=== PATIENT | male | born 1990 | race African-American/Black ===

== ENCOUNTER 2019-12-18 11:20 | Inpatient (IN) | payer OTHER ==
[2019-12-18] VITALS (16 sets, daily range): BP systolic 115–171; BP diastolic 49–100
[~2019-12-18] VITALS: Ht 182.9 cm; Wt 93.0 kg
[~2019-12-18 11:20] MED LIST: NOHOMEMEDICATIONS
[2019-12-18 12:00] LABS: BASOPHILS 0.5 % (0.0-2.0); EOSINOPHILS 0.1 % (0.0-3.0); HEMATOCRIT 51.6 % (42.0-52.0); HEMOGLOBIN 17.9 gm/dL (14.0-18.0); LYMPHOCYTES 10.1 % (24.0-44.0); MCH 30.5 pg (26.0-34.0); MCHC 34.6 g/dL (28.0-37.0); MCV 88.2 fL (80.0-100.0); MONOCYTES 8.1 % (1.0-8.0); PLATELET COUNT 362 thou/uL (150-400); POLYS 81.2 % (36.0-66.0); RBC 5.86 mil/uL (4.50-6.00); RDW 12.6 % (10.5-14.5); WBC 12.3 thou/uL (4.0-11.0)
[2019-12-18 12:09] LABS: CALCIUM 10.4 mg/dL (8.5-10.1); CREATININE 1.3 mg/dL (0.7-1.3); POTASSIUM 3.7 mmol/L (3.5-5.1)
[2019-12-18 12:14] LABS: ALBUMIN 5.1 g/dL (3.4-5.0); TOTAL BILIRUBIN 1.3 mg/dL (<0.1-1.0); TOTAL PROTEIN 10.4 g/dL (6.4-8.2)
[2019-12-18 12:48] LABS: URINE BLOOD NEGATIVE (Negative); URINE CLARITY CLEAR; URINE COLOR YELLOW; URINE GLUCOSE-RANDOM* 2+ (Negative); URINE KETONES 3+ (Negative); URINE LEUKOCYTES-REFLEX NEGATIVE (Negative); URINE NITRITE-REFLEX NEGATIVE (Negative); URINE PROTEIN (DIPSTICK) 2+ (Negative); URINE SPECIFIC GRAVITY 1.015 (1.005-1.035); URINE UROBILINOGEN 0.2 E.U./dl (0.2-1.0)
[2019-12-18 12:52] LABS: ICTOTEST (BILI CONFIRMATORY) Negative (Negative); URINE BILIRUBIN NEGATIVE (Negative)
[2019-12-18 12:58] LABS: BE(vivo) -5.1 mmol/L (-2 to +3); HCO3 14.8 mmol/L (22.0-26.0); PCO2 VENOUS 18.5 mmHg (41.0-51.0)
[2019-12-18 12:59] LABS: SQUAMOUS 0-3 Few /LPF (0-3)
[2019-12-18 13:00] LABS: BACTERIA-REFLEX 1-9 Few /HPF (None Seen); CASTS None Seen /LPF (None Seen); CRYSTALS None Seen /LPF (None Seen); URINE RBC 0-2 Rare /HPF (0-2); URINE WBC-REFLEX 0-5 Rare /HPF (0-5)
[2019-12-18 13:40] LABS: CALCIUM 10.5 mg/dL (8.5-10.1); CREATININE 1.3 mg/dL (0.7-1.3); POTASSIUM 3.9 mmol/L (3.5-5.1)
[2019-12-18 13:43] LABS: PHOSPHORUS 2.2 mg/dL (2.5-4.9)
[2019-12-18 17:30] LABS: ALBUMIN 4.1 g/dL (3.4-5.0); CALCIUM 9.1 mg/dL (8.5-10.1); CREATININE 1.1 mg/dL (0.7-1.3); MAGNESIUM 1.8 mg/dL (1.8-2.4); PHOSPHORUS 4.1 mg/dL (2.5-4.9); POTASSIUM 4.2 mmol/L (3.5-5.1)
--- NOTE | 2019-12-18 19:46 | NUR ---
PT ARRIVED @ 1555, PT ARRIVED WITH THE ASSISTANCE OF AN DOPE HEATER. PT ARRIVED ON WITH NO IV FLUIDS OR INSULIN RUNNING. LABS ARE ORDERED @ 1600, THE PT ARRIVED, PT SITTER ARRIVES @ 1615 UNABLE TO GET BLOOD SAMPLE. ANOTHER PT SITTER ARRIVES @ 1700, LAB FINALLY RECIEVED. FLUIDS ADJUSTED PER DKA PROTOCOL. PT PROGRESSING TOWARDS POC.
[2019-12-18 22:31] LABS: ALBUMIN 3.8 g/dL (3.4-5.0); CALCIUM 8.8 mg/dL (8.5-10.1); MAGNESIUM 1.8 mg/dL (1.8-2.4); PHOSPHORUS 3.3 mg/dL (2.5-4.9); POTASSIUM 3.7 mmol/L (3.5-5.1)
[2019-12-18 23:31] LABS: CHOLESTEROL 188 mg/dL (<200); HDL CHOLESTEROL 49 mg/dL (>40); LDL CHOLESTEROL 123 mg/dL (<100); TC:HDL 3.8 Ratio (Not establshd); TRIGLYCERIDE 82 mg/dL (<150); VLDL 16 mg/dL (<40)
[2019-12-18 23:38] LABS: SERUM ASSESSMENT Clear
[2019-12-19] VITALS (8 sets, daily range): BP systolic 120–161; BP diastolic 61–112
--- NOTE | 2019-12-19 03:23 | NUR ---
ASSUMED CARE OF PATIENT AT 1900. VSS, AFEBRILE. DID C/O NAUSEA. ORDER FOR IV ZOFRAN OBTAINED. RESTING THROUGH THE NIGHT. INSULIN GTT INFUSING, SEE FLOW SHEET. DIABETES EDUCATION GIVEN. DISCUSSED DIET AND EXERCISE, WELL SYMPTOMS OF HYPERGLYCEMIA. VERBALIZED UNDERSTANDING. PROGRESSING TOWARDS POC GOALS.
[2019-12-19 04:35] LABS: HEMATOCRIT 42.9 % (42.0-52.0); MCH 30.1 pg (26.0-34.0); MCHC 33.2 g/dL (28.0-37.0); MCV 90.7 fL (80.0-100.0); RBC 4.73 mil/uL (4.50-6.00); RDW 12.7 % (10.5-14.5)
[2019-12-19 04:55] LABS: CALCIUM 8.3 mg/dL (8.5-10.1); CREATININE 0.9 mg/dL (0.7-1.3); POTASSIUM 3.5 mmol/L (3.5-5.1)
[2019-12-19 04:57] LABS: ALBUMIN 3.2 g/dL (3.4-5.0); HEMOGLOBIN 14.3 gm/dL (14.0-18.0); PHOSPHORUS 4.1 mg/dL (2.5-4.9)
[2019-12-19 10:02] LABS: POTASSIUM 3.4 mmol/L (3.5-5.1)
--- NOTE | 2019-12-19 15:05 | NUR ---
REPORT CALLED TO CAPRICE Christopher RN. TELE DISCONTINUED AND PT WILL BE TRANSPORTED BY VIA WHEELCHAIR BY VOLUNTEER.
--- NOTE | 2019-12-19 15:42 | NUR ---
ASSUMED CARE OF PT APPROX 1500. PT A&OX4, VSS, DENIES PAIN BUT HAS NAUSEA. NO SIGNS OF DISTRESS. WILL CONTINUE TO MONITOR.
[2019-12-20 01:07] LABS: GLYCOHEMOGLOBIN (HGB A1C) 10.9 % (4.8-5.6)
[2019-12-20 06:04] LABS: BASOPHILS 0.3 % (0.0-2.0); EOSINOPHILS 0.2 % (0.0-3.0); HEMATOCRIT 44.6 % (42.0-52.0); HEMOGLOBIN 14.7 gm/dL (14.0-18.0); LYMPHOCYTES 15.5 % (24.0-44.0); MCH 29.8 pg (26.0-34.0); MCV 90.4 fL (80.0-100.0); MONOCYTES 8.5 % (1.0-8.0); PLATELET COUNT 361 thou/uL (150-400); POLYS 75.5 % (36.0-66.0); RBC 4.93 mil/uL (4.50-6.00); RDW 12.5 % (10.5-14.5); WBC 13.2 thou/uL (4.0-11.0)
--- NOTE | 2019-12-20 06:32 | NUR ---
Assumed pt care @1900. pt a&ox4. adlib in room. denies pain. c/o of nausea which is partially relieved with current regimen. no emesis. no s/s of acute distress. will cont to monitor
[2019-12-20 06:41] LABS: ALBUMIN 3.8 g/dL (3.4-5.0); CREATININE 0.8 mg/dL (0.7-1.3); POTASSIUM 3.8 mmol/L (3.5-5.1); TOTAL PROTEIN 7.6 g/dL (6.4-8.2)
[2019-12-20 07:20] VITALS: BP 155/86
--- NOTE | 2019-12-20 10:51 | HC ---
[facility] [place] [address] [facility] AD[facility] IN M.R.#: [id number] Admission: 12/18/19 Attend Phys: Carlin Man MD Discharge: Date of : 88 Report #: [id number] THIS REPORT FOR: cc: TONIE - Brenda family physician/PCP TONIE - Brenda family physician/PCP Darrick Raymundo MD ~ CC: [facility] physician/PCP Carlin Man DATE OF SERVICE: 12/19/2019 ENDOCRINE CONSULTATION NOTE CONSULTING PHYSICIAN: Dr. Man. REASON FOR CONSULTATION: DKA, uncontrolled type 2 diabetes mellitus. HISTORY OF PRESENT ILLNESS: This is a 29-year-old male patient whose medical background is rather unremarkable, who presented to the ER yesterday with complaints of progressive nausea, vomiting, generalized weakness evolving over the few days preceding admission. On arrival, the patient was found to have severe hyperglycemia as well as metabolic changes consistent with DKA and was admitted for further care and monitoring. The patient does not recall having ever been diagnosed with diabetes in the past and does not particularly recall going through changes of weight loss, polyuria, excessive thirst, blurring of vision over the past few months. His family history is only noted for his father having had type 2 diabetes mellitus. REVIEW OF SYSTEMS: CONSTITUTIONAL: Fatigue, tiredness, no fever or chills. HEENT: Negative for sinus pain, sinus congestion, ear drainage. PULMONARY: Negative for shortness of breath, cough or hemoptysis. CARDIAC: Negative for chest pain, palpitations, syncope or presyncope. GASTROINTESTINAL: Noted for abdominal [id number], distention, nausea and vomiting. NEUROLOGY: Negative for loss of consciousness, severe frequent headaches, seizure activity. PSYCHIATRIC: Negative for delusions, hallucinations. Otherwise, his review of systems noncontributory unless mentioned in HPI. PAST MEDICAL HISTORY: Unremarkable. OUTPATIENT MEDICATIONS: None. [facility] [address] [place] [address] CONSULTATION Name: CAROLINE LOWRY [facility] Room #: [address] [place] [address] [place] [facility].#: [id number] Admission: 12/18/19 Attend Phys: Carlin Man MD Discharge: Date of : 88 Report #: [id number] ALLERGIES: No known drug allergies. FAMILY HISTORY: Diabetes mellitus. SOCIAL HISTORY: The patient is engaged. He smokes marijuana. He drinks alcohol at least once a week. Denies use of other illicit drugs. He is currently unemployed. PHYSICAL EXAMINATION: GENERAL: -Iranian male patient who is not in apparent pain or distress. VITAL SIGNS: Blood pressure is 120/63, heart rate is 60 beats per minute, respirations 20 per minute, temperature 37 Celsius. CONSTITUTIONAL: The patient is lying in bed, appears comfortable, not in apparent distress. HEENT: Anicteric sclerae. Intact extraocular motions. NECK: Supple, without JVD, carotid bruits or lymphadenopathy. I do not appreciate thyromegaly. CHEST: Clear to auscultation with good air entry bilaterally. No wheeze or crackles with resonant percussion noted over both lung ruffin. HEART: Regular rate and rhythm without murmurs or gallops. ABDOMEN: Soft, lax. No guarding. Active bowel sounds. EXTREMITIES: Lower extremity exam is negative for ankle edema, skin breaks, ulcerations. Pedal pulses are appreciated. NEUROLOGIC: Awake, alert and oriented to time, place and person. The remainder of his examination is nonfocal. PSYCHIATRIC: Pleasant, interactive, appropriate. Normal mood and affect. LABORATORY DATA: Blood glucose on arrival was elevated and has over the past several hours have been consistently below 230 mg/dL. Sodium 134, potassium 3.4, chloride 99, CO2 of 24. Anion gap currently at 11, was at 22 on presentation. Creatinine 1.0, glucose was 332 mg/dL on arrival. Lipase 202. Total bilirubin 1.3, calcium 9.0, phosphorus 4.1, magnesium 1.9, alkaline phosphatase 103, ALT 18, total protein 10.4, albumin 3.2. EGFR 106. Total cholesterol 188, triglycerides 82, HDL 49, LDL 123. White blood count 13, hemoglobin 14.3, hematocrit 42.9, platelets 307. Hemoglobin A1c is done and is pending. ASSESSMENT AND PLAN: 1. Diabetic ketoacidosis. The patient presented with metabolic changes that are consistent with diabetic ketoacidosis. Blood glucose control and metabolic normalcy had been restored following an overnight management with intravenous insulin, intravenous fluids. The patient's most recent and current IV insulin needs have been around 5-6 units per hour. As said, I will transition the patient to subcutaneous insulin therapy. 2. Type 2 diabetes mellitus. The patient does not have a prior diagnosis of diabetes mellitus and the current presentation with DKA and severe hyperglycemia [facility] [address] [place] [address] CONS[facility]ATION [facility] #: 451-P [facility] [place].#: [id number] Admission: 12/18/19 Attend Phys: Carlin Man MD Discharge: Date of : 88 Report #: [id number] establishes this diagnosis. The patient was counseled about this outlook. I explained that we still need to make a distinction between type 1 and type 2 diabetes mellitus and in doing so, I will request a C-peptide levels as well as serology studies. Making the distinction would have significant implications on his therapeutic choices in the future. In the immediate setting, I will switch the patient from intravenous insulin to subcutaneous insulin at a dosage of Lantus insulin 45 units daily and Humalog insulin 15 units t.i.d. a.c along with Humalog supplemental scale coverage. Blood glucose monitoring will commence a.c. and at bedtime following the cessation of IV insulin. The patient will certainly need to be monitored long-term to understand his therapeutic needs and adjust accordingly. As noted above, hemoglobin A1c is pending and will shed some light on his overall outlook over the past few months. The patient was counseled about the pathogenesis of diabetes mellitus, its implications, and the importance of achieving and maintaining adequate glycemic control to prevent diabetic complications. I stressed the role of effective diet and exercise measures in achieving these goals. I certainly appreciate this consultation by Dr. Man. <ELECTRONICALLY SIGNED> By: Darrikc Raymundo MD 12/20/19 1051 [id number] Darrick Raymundo MD /nt
--- NOTE | 2019-12-20 11:28 | NUR ---
Met with patient who resides with ashley and her 3 children ages 2-7. He is not employed had a job interview Tuesday. He has no health insurance or PCP. Patient admits with N/V and new diabetic diagnosis. Endrocrine consulted. Gave [facility] to f[facility]u with for medical clinic. Plan home independent.
[2019-12-20 12:19] VITALS: BP 155/86
[2019-12-20] MEDS ORDERED: HUMALOG100 UNIT/1 SUBQ (14:44)
[2019-12-20] MEDS ORDERED: LANTUS SUBQ (14:44)
[2019-12-20 14:45] VITALS: BP 128/75
--- NOTE | 2019-12-20 16:33 | NUR ---
PATIENT TO DC HOME VOUCHED MEDS IN AMOUNT OF $1157.01 DIRECTOR OF [facility] APPROVED,
[2019-12-20 16:34] VITALS: BP 155/86
--- NOTE | 2019-12-20 20:05 | NUR ---
PT DISCHARGED HOME. PT A&OX4, VSS, DENIES PAIN. PATIENT HAD NAUSEA BUT CONTROLLED WITH MEDICATION. ALL BELONGINGS WITH PATIENT. IV REMOVED.
== END 2019-12-20 17:17 | disposition home or self-care (01) | DRG 639 ==
LOC: ER 11:20 → EROBS 13:26 → ICU 13:26 → 4W 12-19 15:22
PROVIDERS: Physician Assistant; ADMIT Internal Medicine
DX: E11.10 Type 2 diabetes mellitus with ketoacidosis without coma (principal); F17.210 Nicotine dependence, cigarettes, uncomplicated
CPT/HCPCS: 10040; 10047; 10078

== ENCOUNTER 2020-01-24 08:37 | Emergency (ER) | payer OTHER ==
[~2020-01-24] VITALS: Ht 175.3 cm; Wt 97.5 kg
[~2020-01-24 08:37] MED LIST changes: +HUMALOG100 UNIT/1 SUBQ; +LANTUS SUBQ
[2020-01-24 09:24] LABS: ABSOLUTE NEUTROPHILS 10.2 thou/uL (1.4-8.2); BASOPHILS 0.2 % (0.0-2.0); EOSINOPHILS 0.2 % (0.0-3.0); HEMATOCRIT 47.2 % (42.0-52.0); HEMOGLOBIN 15.9 gm/dL (14.0-18.0); LYMPHOCYTES 16.7 % (24.0-44.0); MCH 30.5 pg (26.0-34.0); MCHC 33.7 g/dL (28.0-37.0); MCV 90.5 fL (80.0-100.0); MONOCYTES 8.5 % (1.0-8.0); PLATELET COUNT 399 thou/uL (150-400); POLYS 74.4 % (36.0-66.0); RBC 5.21 mil/uL (4.50-6.00); RDW 12.9 % (10.5-14.5); WBC 13.8 thou/uL (4.0-11.0)
[2020-01-24 09:27] LABS: BE(vivo) -0.3 mmol/L (-2 to +3); HCO3 21.3 mmol/L (22.0-26.0); PO2 VENOUS 34.2 mmHg (35.0-45.0)
[2020-01-24 09:46] LABS: CALCIUM 10.5 mg/dL (8.5-10.1); CREATININE 1.1 mg/dL (0.7-1.3); POTASSIUM 3.2 mmol/L (3.5-5.1)
[2020-01-24 09:52] LABS: ALBUMIN 4.5 g/dL (3.4-5.0); TOTAL BILIRUBIN 1.4 mg/dL (<0.1-1.0); TOTAL PROTEIN 9.8 g/dL (6.4-8.2)
[2020-01-24 10:56] LABS: URINE BLOOD NEGATIVE (Negative); URINE CLARITY CLEAR; URINE COLOR YELLOW; URINE GLUCOSE-RANDOM* NEGATIVE (Negative); URINE KETONES 3+ (Negative); URINE LEUKOCYTES-REFLEX NEGATIVE (Negative); URINE NITRITE-REFLEX NEGATIVE (Negative); URINE PROTEIN (DIPSTICK) 1+ (Negative); URINE SPECIFIC GRAVITY >= 1.030 (1.005-1.035)
[2020-01-24 11:01] LABS: ICTOTEST (BILI CONFIRMATORY) Negative (Negative); URINE BILIRUBIN NEGATIVE (Negative)
[2020-01-24] MEDS ORDERED: ZOFRAN ODT4 MG PO (11:16)
[2020-01-24 11:18] VITALS: BP 149/87
[2020-01-24 11:26] LABS: BACTERIA-REFLEX 1-9 Few /HPF (None Seen); CASTS None Seen /LPF (None Seen); CRYSTALS None Seen /LPF (None Seen); SQUAMOUS 0-3 Few /LPF (0-3); URINE RBC None Seen /HPF (0-2); URINE WBC-REFLEX None Seen /HPF (0-5)
== END 2020-01-24 11:18 | disposition home or self-care (01) ==
LOC: ER 08:37
PROVIDERS: Emergency Medicine
DX: R11.2 Nausea with vomiting, unspecified (principal); E11.9 Type 2 diabetes mellitus without complications; F17.210 Nicotine dependence, cigarettes, uncomplicated; Z79.4 Long term (current) use of insulin

== ENCOUNTER 2020-01-27 01:33 | Emergency (ER) | payer OTHER ==
[~2020-01-27] VITALS: Ht 175.3 cm; Wt 97.5 kg
[~2020-01-27 01:33] MED LIST changes: +ZOFRAN ODT4 MG PO
[2020-01-27 02:22] LABS: URINE BILIRUBIN 2+ (Negative); URINE BLOOD NEGATIVE (Negative); URINE CLARITY CLEAR; URINE COLOR YELLOW; URINE GLUCOSE-RANDOM* NEGATIVE (Negative); URINE KETONES 2+ (Negative); URINE LEUKOCYTES-REFLEX NEGATIVE (Negative); URINE NITRITE-REFLEX NEGATIVE (Negative); URINE PROTEIN (DIPSTICK) 2+ (Negative); URINE SPECIFIC GRAVITY >= 1.030 (1.005-1.035); URINE UROBILINOGEN 0.2 E.U./dl (0.2-1.0)
[2020-01-27 02:24] LABS: ABSOLUTE NEUTROPHILS 12.9 thou/uL (1.4-8.2); BASOPHILS 0.4 % (0.0-2.0); EOSINOPHILS 0.2 % (0.0-3.0); HEMATOCRIT 44.2 % (42.0-52.0); HEMOGLOBIN 15.3 gm/dL (14.0-18.0); LYMPHOCYTES 12.9 % (24.0-44.0); MCH 30.4 pg (26.0-34.0); MCHC 34.6 g/dL (28.0-37.0); MCV 87.9 fL (80.0-100.0); MONOCYTES 9.4 % (1.0-8.0); PLATELET COUNT 453 thou/uL (150-400); POLYS 77.1 % (36.0-66.0); RBC 5.02 mil/uL (4.50-6.00); RDW 12.6 % (10.5-14.5); WBC 16.7 thou/uL (4.0-11.0)
[2020-01-27 02:26] LABS: ICTOTEST (BILI CONFIRMATORY) Positive (Negative)
[2020-01-27 02:31] LABS: BACTERIA-REFLEX 1-9 Few /HPF (None Seen); CRYSTALS None Seen /LPF (None Seen); HYALINE CASTS 0-3 Few /LPF (None Seen); MUCUS 0-3 Light strn/LPF (None Seen); SQUAMOUS 0-3 Few /LPF (0-3); URINE RBC None Seen /HPF (0-2); URINE WBC-REFLEX 0-5 Rare /HPF (0-5)
[2020-01-27 02:32] LABS: ALBUMIN 4.3 g/dL (3.4-5.0); CALCIUM 9.3 mg/dL (8.5-10.1); CREATININE 1.1 mg/dL (0.7-1.3); TOTAL BILIRUBIN 1.4 mg/dL (<0.1-1.0); TOTAL PROTEIN 8.9 g/dL (6.4-8.2)
[2020-01-27 02:33] LABS: POTASSIUM 2.9 mmol/L (3.5-5.1)
[2020-01-27] MEDS ORDERED: REGLAN 10 MG TA10 MG PO (04:47)
[2020-01-27 05:23] VITALS: BP 159/90
== END 2020-01-27 05:20 | disposition home or self-care (01) ==
LOC: ER 01:33
PROVIDERS: Emergency Medicine
DX: R11.2 Nausea with vomiting, unspecified (principal); E87.6 Hypokalemia; K59.00 Constipation, unspecified; E11.9 Type 2 diabetes mellitus without complications; F17.210 Nicotine dependence, cigarettes, uncomplicated; Z79.4 Long term (current) use of insulin

== ENCOUNTER 2020-04-27 13:27 | Inpatient (IN) | payer OTHER ==
[~2020-04-27] VITALS: Ht 180.3 cm; Wt 86.2 kg
[~2020-04-27 13:27] MED LIST changes: +REGLAN 10 MG TA10 MG PO
[2020-04-27 13:33] VITALS: BP 164/78
[2020-04-27 14:19] LABS: ABSOLUTE NEUTROPHILS 9.9 thou/uL (1.4-8.2); BASOPHILS 0.4 % (0.0-2.0); HEMATOCRIT 40.8 % (42.0-52.0); HEMOGLOBIN 14.4 gm/dL (14.0-18.0); LYMPHOCYTES 12.6 % (24.0-44.0); MCH 31.5 pg (26.0-34.0); MCHC 35.3 g/dL (28.0-37.0); MCV 89.2 fL (80.0-100.0); PLATELET COUNT 377 thou/uL (150-400); RBC 4.57 mil/uL (4.50-6.00); RDW 13.2 % (10.5-14.5); WBC 12.7 thou/uL (4.0-11.0)
[2020-04-27 14:23] LABS: CALCIUM 10.3 mg/dL (8.5-10.1); CREATININE 1.5 mg/dL (0.7-1.3); POTASSIUM 3.5 mmol/L (3.5-5.1)
[2020-04-27 14:28] LABS: ALBUMIN 4.7 g/dL (3.4-5.0); TOTAL PROTEIN 9.4 g/dL (6.4-8.2)
[2020-04-27 14:44] LABS: URINE BLOOD TRACE (Negative); URINE CLARITY CLEAR; URINE COLOR YELLOW; URINE GLUCOSE-RANDOM* NEGATIVE (Negative); URINE KETONES 2+ (Negative); URINE LEUKOCYTES-REFLEX NEGATIVE (Negative); URINE NITRITE-REFLEX NEGATIVE (Negative); URINE PROTEIN (DIPSTICK) 3+ (Negative); URINE SPECIFIC GRAVITY >= 1.030 (1.005-1.035); URINE UROBILINOGEN 0.2 E.U./dl (0.2-1.0)
[2020-04-27 14:50] LABS: ICTOTEST (BILI CONFIRMATORY) Negative (Negative); URINE BILIRUBIN NEGATIVE (Negative)
[2020-04-27 14:51] LABS: MUCUS >6 Heavy strn/LPF (None Seen); SQUAMOUS >10 Many /LPF (0-3)
[2020-04-27 14:52] LABS: BACTERIA-REFLEX None Seen /HPF (None Seen); CASTS None Seen /LPF (None Seen); URINE RBC 0-2 Rare /HPF (0-2); URINE WBC-REFLEX 0-5 Rare /HPF (0-5)
[2020-04-27 14:53] LABS: CRYSTALS None Seen /LPF (None Seen)
[2020-04-27 16:14] LABS: AMP/METHAMP Negative (Negative); BARBITURATES Negative (Negative); BENZODIAZEPINES Negative (Negative); COCAINE POSITIVE (Negative); METHADONE Negative (Negative); OPIATES Negative (Negative); PCP Negative (Negative)
[2020-04-27 17:06] VITALS: BP 146/77
--- NOTE | 2020-04-27 17:13 | NUR ---
FIRST ATTEMPT TO GIVE REPORT AT 171
[2020-04-27 17:59] VITALS: BP 117/62
--- NOTE | 2020-04-27 18:41 | NUR ---
Patient arrived on Unit at 1805. Vital signs taken, patient settled into room. Patient wanted to take a shower upon his arrival to his room; he is finishing up in shower at this time. Will give report to on-coming nurse.
[2020-04-27 19:06] VITALS: BP 121/62
[2020-04-27 23:39] VITALS: BP 121/58
--- NOTE | 2020-04-28 02:50 | NUR ---
PATIENT WAS SEEN AT THE BEGINNING OF THE SHIFT THEN ADMITTED, AT THE TIME OF THE ADMISSION PT HAD ALREADY TAKEN A SHOWER AND WAS INDEPENDANTLY AMBULATING. PT'S LAC IV WAS BEEPING CONSTANTLY SO A HAND IV WAS PLACED FOR COMFORT DURING THE EVENING. PT HAD ASKED ABOUT THE DIET SO WITH THE HELP OF MANAGER ROOM, CLEAR LIQ DIET WAS ORDERED. THEN WHEN RN WENT TO PROVIDE FOOD, PATIENT HAD BEGUN THROWING UP FROM DRINKING WATER TOO QUICKLY. PT WAS TOLD THAT DIET WILL BEGIN TOMORROW MORNING AND WAS PROVIDED ZOFRAN FOR NAUSEA RELIEF. PT HAS BEEN SLEEPING COMFORTABLY SINCE THEN. PT HAD 2 EMESIS THIS SHIFT, NONE OF THEM WERE MEASURED.
[2020-04-28 04:05] VITALS: BP 108/58
[2020-04-28 06:46] LABS: HEMATOCRIT 35.8 % (42.0-52.0); MCHC 34.2 g/dL (28.0-37.0); MCV 90.8 fL (80.0-100.0); RBC 3.94 mil/uL (4.50-6.00); RDW 13.6 % (10.5-14.5); WBC 12.5 thou/uL (4.0-11.0)
[2020-04-28 07:16] VITALS: BP 129/89
[2020-04-28 07:24] LABS: HEMOGLOBIN 12.2 gm/dL (14.0-18.0)
[2020-04-28 07:44] LABS: CALCIUM 8.8 mg/dL (8.5-10.1); POTASSIUM 3.5 mmol/L (3.5-5.1)
--- NOTE | 2020-04-28 11:47 | NUR ---
PT ADMITTED RELATED TO INTRACTABLE VOMITTING/NAUSEA. CM REVIEWED CHART AND SPOKE WITH CARE TEAM. CM CALLED AND SPOKE WITH PT AT BEDSIDE THIS DAY. PT INDICATED HE LIVES IN A HOUSE WIH HIS GIRLFRIEND AND 3 KIDS WITH 3 STEPS TO ENTER AND NONE INSIDE. 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 PT INDICATED HE IS UNINSURED BUT HAD PCP DR. ACEVEDO AT [facility] WHO HE SEES. HE INDICATED HE PLANS TO RETURN HOME ONCE MEDICALLY STABLE. CM TO FOLLOW INDICATED WITH DC PLANNING.
--- NOTE | 2020-04-28 11:59 | NUR ---
Received awake on bed. Due medications given as prescribed. On clear liquids- pt given clear liquid menu- given request; with standing order to advance at tolerated- pt still having nausea and vomiting so maintained on clear liquid diet- pt updated. A+Ox4. On room air. On blood sugar monitoring- taken and recorded accordingly; with sliding scale insulin ordered; given as prescribed. Continent of bowel and bladder- able to go to the bathroom; independent with ADLs. With SL at L AC; NS at 80cc/hr, infusing well at L hand. No skin issues. Pt seen and examined by Dr Silvestre- informed that pt still having nausea and vomiting; asked if pt can have additional anti-emetics. To continue monitoring patient.
[2020-04-28 16:25] VITALS: BP 125/68
[2020-04-28 19:29] VITALS: BP 136/92
--- NOTE | 2020-04-29 04:35 | NUR ---
Assumed pt care at 1900. Pt's A/OX4,VSS. Pt is up ad norma in room. Denies pain on assessment however has c/o N/V but not witnessed medicated for nause per EMAR with partial relief reported. Pt has had 2 showers this shift and reports feeling reliefed afterwards. Pt had two IV's at start of shift, the one on left hand came loose and discontinued left with LAC. IVF infusing w/o problems. Encouraged to call for help as needed.
[2020-04-29 06:11] LABS: HEMOGLOBIN 12.6 gm/dL (14.0-18.0); MCH 30.6 pg (26.0-34.0); MCHC 34.1 g/dL (28.0-37.0); MCV 89.6 fL (80.0-100.0); RBC 4.13 mil/uL (4.50-6.00); RDW 12.7 % (10.5-14.5); WBC 11.8 thou/uL (4.0-11.0)
[2020-04-29 06:29] LABS: CALCIUM 8.8 mg/dL (8.5-10.1); CREATININE 0.9 mg/dL (0.7-1.3); POTASSIUM 3.3 mmol/L (3.5-5.1)
[2020-04-29 07:48] VITALS: BP 129/69
[2020-04-29] MEDS ORDERED: REGLAN 10 MG TA10 MG PO (14:06)
[2020-04-29 14:11] VITALS: BP 129/69
--- NOTE | 2020-04-29 14:13 | NUR ---
PT IS AOX4, VSS, N/V CONTROLLED WITH IV MEDICATION. PT IS TOLERATING DIET WELL. PT DENIES PAIN, DISCHARGE INSTRUCTIONS WERE DISCUSSED AND PT AGREES. PT UP AD WILLIE, IV D/C'D, GIRLFRIEND PICKING UP TO TRANSPORT HOME.
--- NOTE | 2020-04-29 16:23 | NUR ---
PHYSICIAN INDICATED THAT PT IS MEDICALLY STABLE TO DC HOME THIS DAY. PT IS TO DC HOME TO SELF CARE. NO OTHER CM INTERVENTION INDICTED. CASE CLOSED.
== END 2020-04-29 14:43 | disposition home or self-care (01) | DRG 73 ==
LOC: ER 13:27 → 4W 16:04 → EROBS 16:04 → 4W 17:59
PROVIDERS: Physician Assistant; ADMIT Hospitalist; ATTEND Hospitalist
DX: E11.43 Type 2 diabetes mellitus with diabetic autonomic (poly)neuropathy (principal); E43 Unspecified severe protein-calorie malnutrition; N17.9 Acute kidney failure, unspecified; R06.03 Acute respiratory distress; E86.0 Dehydration; F19.10 Other psychoactive substance abuse, uncomplicated; K29.70 Gastritis, unspecified, without bleeding; K31.84 Gastroparesis; Z79.4 Long term (current) use of insulin; Z71.51 Drug abuse counseling and surveillance of drug abuser; Z79.899 Other long term (current) drug therapy; Z68.26 Body mass index [BMI] 26.0-26.9, adult
CPT/HCPCS: 10040

== ENCOUNTER 2020-09-08 12:30 | Emergency (ER) | payer OTHER ==
[~2020-09-08] VITALS: Ht 180.3 cm; Wt 86.2 kg
[2020-09-08] MEDS ORDERED: METFORMIN HCL500 MG PO (12:37)
[2020-09-08 12:51] LABS: URINE BILIRUBIN NEGATIVE (Negative); URINE BLOOD NEGATIVE (Negative); URINE CLARITY CLEAR; URINE COLOR YELLOW; URINE GLUCOSE-RANDOM* NEGATIVE (Negative); URINE KETONES 2+ (Negative); URINE LEUKOCYTES-REFLEX NEGATIVE (Negative); URINE NITRITE-REFLEX NEGATIVE (Negative); URINE PROTEIN (DIPSTICK) 2+ (Negative)
[2020-09-08 13:06] LABS: BACTERIA-REFLEX None Seen /HPF (None Seen); CASTS None Seen /LPF (None Seen); CRYSTALS None Seen /LPF (None Seen); SQUAMOUS 0-3 Few /LPF (0-3); URINE RBC None Seen /HPF (0-2); URINE WBC-REFLEX 0-5 Rare /HPF (0-5)
[2020-09-08 14:08] LABS: ABSOLUTE NEUTROPHILS 5.3 thou/uL (1.4-8.2); BASOPHILS 0.5 % (0.0-2.0); EOSINOPHILS 0.1 % (0.0-3.0); LYMPHOCYTES 16.7 % (24.0-44.0); MCH 30.9 pg (26.0-34.0); MCV 88.4 fL (80.0-100.0); MONOCYTES 8.4 % (1.0-8.0); PLATELET COUNT 415 thou/uL (150-400); POLYS 74.3 % (36.0-66.0); RBC 4.53 mil/uL (4.50-6.00); RDW 12.9 % (10.5-14.5); WBC 7.1 thou/uL (4.0-11.0)
[2020-09-08 14:31] LABS: ALBUMIN 4.7 g/dL (3.4-5.0); CREATININE 1.5 mg/dL (0.7-1.3); POTASSIUM 3.8 mmol/L (3.5-5.1); TOTAL BILIRUBIN 0.6 mg/dL (0.2-1.0); TOTAL PROTEIN 9.1 g/dL (6.4-8.2)
[2020-09-08 14:42] LABS: CALCIUM 10.1 mg/dL (8.5-10.1)
[2020-09-08 14:48] LABS: AMP/METHAMP Negative (Negative); BARBITURATES Negative (Negative); BENZODIAZEPINES Negative (Negative); COCAINE Negative (Negative); METHADONE Negative (Negative); OPIATES Negative (Negative); PCP Negative (Negative)
[2020-09-08] MEDS ORDERED: TRAMADOL 50 MG50 MG PO (14:48)
[2020-09-08] MEDS ORDERED: ONDANSETRON ODT8 MG PO (14:48)
[2020-09-08 15:35] VITALS: BP 139/80
== END 2020-09-08 15:35 | disposition home or self-care (01) ==
LOC: ER 12:30
PROVIDERS: Emergency Medicine
DX: F12.188 Cannabis abuse with other cannabis-induced disorder (principal); R11.2 Nausea with vomiting, unspecified; R10.32 Left lower quadrant pain; E11.65 Type 2 diabetes mellitus with hyperglycemia; F17.210 Nicotine dependence, cigarettes, uncomplicated; Z79.899 Other long term (current) drug therapy

== ENCOUNTER 2020-10-01 15:39 | Emergency (ER) | payer OTHER ==
[~2020-10-01] VITALS: Ht 180.3 cm; Wt 90.7 kg
[~2020-10-01 15:39] MED LIST changes: +METFORMIN HCL500 MG PO; +ONDANSETRON ODT8 MG PO; +TRAMADOL 50 MG50 MG PO
[2020-10-01 15:57] LABS: ABSOLUTE NEUTROPHILS 10.1 thou/uL (1.4-8.2); BASOPHILS 0.2 % (0.0-2.0); EOSINOPHILS 0.6 % (0.0-3.0); HEMATOCRIT 39.7 % (42.0-52.0); HEMOGLOBIN 13.2 gm/dL (14.0-18.0); LYMPHOCYTES 7.3 % (24.0-44.0); MCH 30.1 pg (26.0-34.0); MCHC 33.2 g/dL (28.0-37.0); MCV 90.6 fL (80.0-100.0); MONOCYTES 3.8 % (1.0-8.0); PLATELET COUNT 329 thou/uL (150-400); POLYS 88.1 % (36.0-66.0); RBC 4.38 mil/uL (4.50-6.00); RDW 13.2 % (10.5-14.5); WBC 11.5 thou/uL (4.0-11.0)
[2020-10-01 16:09] LABS: URINE BILIRUBIN NEGATIVE (Negative); URINE BLOOD NEGATIVE (Negative); URINE CLARITY CLEAR; URINE COLOR YELLOW; URINE GLUCOSE-RANDOM* NEGATIVE (Negative); URINE KETONES 2+ (Negative); URINE LEUKOCYTES-REFLEX NEGATIVE (Negative); URINE NITRITE-REFLEX NEGATIVE (Negative); URINE PROTEIN (DIPSTICK) 2+ (Negative)
[2020-10-01 16:19] LABS: ALBUMIN 4.9 g/dL (3.4-5.0); CALCIUM 10.6 mg/dL (8.5-10.1); CREATININE 1.4 mg/dL (0.7-1.3); POTASSIUM 3.8 mmol/L (3.5-5.1); TOTAL BILIRUBIN 0.4 mg/dL (0.2-1.0); TOTAL PROTEIN 9.4 g/dL (6.4-8.2)
[2020-10-01 16:39] LABS: BACTERIA-REFLEX 1-9 Few /HPF (None Seen); CASTS None Seen /LPF (None Seen); CRYSTALS None Seen /LPF (None Seen); SQUAMOUS 0-3 Few /LPF (0-3); URINE RBC 0-2 Rare /HPF (0-2); URINE WBC-REFLEX 0-5 Rare /HPF (0-5)
[2020-10-01 17:06] LABS: BE(vivo) -4.9 mmol/L (-2 to +3); HCO3 18.8 mmol/L (22.0-26.0); PCO2 VENOUS 31.2 mmHg (41.0-51.0); PO2 VENOUS 40.5 mmHg (35.0-45.0)
[2020-10-01 20:39] LABS: SALICYLATE < 2.8 mg/dL (2.8-20.0)
[2020-10-01] MEDS ORDERED: ONDANSETRON HCL4 M2 PO (21:26)
[2020-10-01 21:55] VITALS: BP 127/77
== END 2020-10-01 21:55 | disposition home or self-care (01) ==
LOC: ER 15:39
PROVIDERS: Physician Assistant
DX: F12.988 Cannabis use, unspecified with other cannabis-induced disorder (principal); R11.2 Nausea with vomiting, unspecified; E11.9 Type 2 diabetes mellitus without complications; F17.210 Nicotine dependence, cigarettes, uncomplicated; Z79.899 Other long term (current) drug therapy

== ENCOUNTER 2020-12-18 18:00 | Inpatient (IN) | payer OTHER ==
[~2020-12-18] VITALS: Ht 180.3 cm; Wt 94.8 kg
[~2020-12-18 18:00] MED LIST changes: +ONDANSETRON HCL4 M2 PO
[2020-12-18 18:04] VITALS: BP 117/78
[2020-12-18] MEDS ORDERED: HUMULOG (18:12)
[2020-12-18 19:13] LABS: URINE BLOOD TRACE (Negative); URINE CLARITY CLEAR; URINE COLOR YELLOW; URINE GLUCOSE-RANDOM* NEGATIVE (Negative); URINE KETONES 1+ (Negative); URINE LEUKOCYTES-REFLEX NEGATIVE (Negative); URINE NITRITE-REFLEX NEGATIVE (Negative); URINE PROTEIN (DIPSTICK) 3+ (Negative); URINE SPECIFIC GRAVITY >= 1.030 (1.005-1.035); URINE UROBILINOGEN 0.2 E.U./dl (0.2-1.0)
[2020-12-18 19:20] LABS: ICTOTEST (BILI CONFIRMATORY) Negative (Negative); URINE BILIRUBIN NEGATIVE (Negative)
[2020-12-18 19:20] LABS: HCO3 20.8 mmol/L (22.0-26.0); PO2 84.1 mmHg (80.0-100.0)
[2020-12-18 19:28] LABS: PCO2 19.1 mmHg (35.0-45.0); pH 7.654 (7.360-7.450)
[2020-12-18 19:41] LABS: ABSOLUTE NEUTROPHILS 14.1 thou/uL (1.4-8.2); BASOPHILS 0.3 % (0.0-2.0); EOSINOPHILS 0.1 % (0.0-3.0); HEMATOCRIT 47.5 % (42.0-52.0); HEMOGLOBIN 15.6 gm/dL (14.0-18.0); LYMPHOCYTES 10.5 % (24.0-44.0); MCH 29.8 pg (26.0-34.0); MCHC 32.9 g/dL (28.0-37.0); MCV 90.5 fL (80.0-100.0); MONOCYTES 11.1 % (1.0-8.0); PLATELET COUNT 309 thou/uL (150-400); RBC 5.25 mil/uL (4.50-6.00); RDW 13.2 % (10.5-14.5); WBC 18.1 thou/uL (4.0-11.0)
[2020-12-18 20:01] LABS: CALCIUM 9.4 mg/dL (8.5-10.1); CREATININE 2.1 mg/dL (0.7-1.3)
[2020-12-18 20:03] LABS: ALBUMIN 4.9 g/dL (3.4-5.0); TOTAL BILIRUBIN 1.9 mg/dL (0.2-1.0); TOTAL PROTEIN 8.9 g/dL (6.4-8.2)
[2020-12-18 21:43] LABS: AMP/METHAMP Negative (Negative); BARBITURATES Negative (Negative); BENZODIAZEPINES Negative (Negative); COCAINE POSITIVE (Negative); METHADONE Negative (Negative); OPIATES Negative (Negative); PCP Negative (Negative)
[2020-12-18 23:12] VITALS: BP 129/74
[2020-12-18 23:48] VITALS: BP 152/89
[2020-12-19 01:15] LABS: HEMOGLOBIN 15.5 gm/dL (14.0-18.0); MCH 30.1 pg (26.0-34.0); MCHC 33.8 g/dL (28.0-37.0); MCV 89.2 fL (80.0-100.0); RBC 5.16 mil/uL (4.50-6.00); RDW 13.2 % (10.5-14.5); WBC 18.8 thou/uL (4.0-11.0)
[2020-12-19 01:27] LABS: CALCIUM 9.5 mg/dL (8.5-10.1); CREATININE 2.3 mg/dL (0.7-1.3)
[2020-12-19 01:29] LABS: POTASSIUM 2.8 mmol/L (3.5-5.1)
[2020-12-19 04:50] VITALS: BP 163/95
--- NOTE | 2020-12-19 07:15 | EKG ---
[address] [address] ELECTROCARDIOGRAM REPORT Name: CAROLINE LOWRY Room #: 454-P ADM IN ..#: [id number] Admission: 12/18/20 Attend Phys: Conrad Petersen MD Discharge: Date of : 88 Report #: [id number] [facility] ED Test Date: 2020-12-18 Test Time: 18:22:33 Pat Name: CAROLINE LOWRY Department: Room: [facility] Gender: M [facility] Coordinator: JACQUELINE : 1990 Requested By: Js Anglin Order Number: [id number] MD: Bryan Zelaya Measurements Intervals [place] Rate: 107 P: 83 HI: 128 QRS: 65 QRSD: 83 T: 25 QT: 375 QTc: 501 Interpretive Statements Sinus tachycardia Biatrial enlargement Probable left ventricular hypertrophy Prolonged QT interval Compared to ECG 06/23/2018 02:09:54 Atrial abnormality now present Prolonged QT interval now present Sinus rhythm no longer present Electronically Signed On 12-19-2020 7:15:28 HOP WEIGHER by Bryan Zelaya [email or web address] <ELECTRONICALLY SIGNED> By: Bryan Zelaya MD, [facility] 12/19/20 0715 21 21 Bryan Zelaya MD, [facility] /EPI
[2020-12-19 07:17] VITALS: BP 147/102
[2020-12-19 15:00] VITALS: BP 151/111
[2020-12-19 20:20] VITALS: BP 132/72
[2020-12-20 06:17] LABS: HEMATOCRIT 46.1 % (42.0-52.0); HEMOGLOBIN 15.3 gm/dL (14.0-18.0); MCH 30.5 pg (26.0-34.0); MCHC 33.2 g/dL (28.0-37.0); MCV 91.9 fL (80.0-100.0); RBC 5.01 mil/uL (4.50-6.00); RDW 12.7 % (10.5-14.5); WBC 13.3 thou/uL (4.0-11.0)
[2020-12-20 06:23] LABS: CALCIUM 8.7 mg/dL (8.5-10.1); POTASSIUM 3.5 mmol/L (3.5-5.1)
[2020-12-20 06:31] LABS: CREATININE 1.2 mg/dL (0.7-1.3)
[2020-12-20 08:13] VITALS: BP 153/101
[2020-12-20] MEDS ORDERED: ONDANSETRON HCL4 M2 PO (15:52)
[2020-12-20 16:00] VITALS: BP 130/87
[2020-12-20 16:15] VITALS: BP 153/101
== END 2020-12-20 17:25 | disposition home or self-care (01) | DRG 637 ==
LOC: ER 18:00 → 4W 20:37 → EROBS 20:37 → 4W 23:31
PROVIDERS: Emergency Medicine; Hospitalist; Nurse Practitioner Family; ADMIT Hospitalist; ATTEND Hospitalist
DX: E11.65 Type 2 diabetes mellitus with hyperglycemia (principal); N17.0 Acute kidney failure with tubular necrosis; K29.70 Gastritis, unspecified, without bleeding; E86.0 Dehydration; D72.829 Elevated white blood cell count, unspecified; F14.10 Cocaine abuse, uncomplicated; F12.10 Cannabis abuse, uncomplicated; F17.200 Nicotine dependence, unspecified, uncomplicated; Z20.822 Contact with and (suspected) exposure to COVID-19; Z79.84 Long term (current) use of oral hypoglycemic drugs; Z79.899 Other long term (current) drug therapy
CPT/HCPCS: 10045